=== PATIENT | female | born 1995 | race Caucasian/White ===

== ENCOUNTER 2017-02-02 22:48 | Emergency (ER) ==
[2017-02-02 23:12] VITALS: BP 118/78; TEMP 99.8; BMI 25.6
--- NOTE | 2017-02-02 23:18 | ED.PDOC ---
General ED Provider: Dr. ARIELA ZARAGOZA Chief Complaint: Non-specific Complaint Stated Complaint: Patient been having problem, swallowing, solids and liquids, been to [facility] they did not help me, told me it is a allergic reaction, I took benadry, no help,. Lauren called [facility] THEY SAW HER LAST IN NOVEMBER, Time Seen by Physician: 23:15 Mode of Arrival: Walk-In Information Source: Patient Nursing and Triage Documentation Reviewed and Agree: Yes EENT Complaint Exam - Throat Complaint/Exam Symptoms Are: Still present Timimg: Constant Initial Severity: Moderate Current Severity: Moderate Aggravating: Reports: Eating Alleviating: Reports: None Associated Signs and Symptoms: Reports: Dysphagia, Foreign body sensation. Denies: Fever, Drooling, Chills, Cough, Wheezing, Hoarseness, Sinus discomfort, Nasal congestion, Difficulty breathing, Lethargy, Irritability, Decreased activity, Vomiting, Diarrhea, Decreased hearing, Ear drainage Related History: Reports: Similar Episode Uvula Midline: Yes Anjana-tonsillar Fluctuence: No Scarlatinaform Rash Present: No Stridor Present: No Sinus Tenderness Present: No Tonsillar Hypertrophy Present: No Tonsillar Exudate Present: No Anjana-tonsillar Swelling Present: No Adenopathy Present: No Splenomegaly Present: No Differential Diagnoses: Pharyngitis, URI Review of Systems - Review Of Systems Constitutional: Reports: Malaise, Weakness Eyes: Reports: No symptoms Ears, Nose, Mouth, Throat: Reports: Throat pain Respiratory: Reports: No symptoms Cardiac: Reports: No symptoms GI: Reports: No symptoms : Reports: No symptoms Musculoskeletal: Reports: No symptoms Skin: Reports: No symptoms Neurological: Reports: No symptoms Endocrine: Reports: No symptoms Hematologic/Lymphatic: Reports: No symptoms All Other Systems: Reviewed and Negative Past Medical History - Past Medical History Previously Healthy: Yes Endocrine: Reports: None Cardiovascular: Reports: None Respiratory: Reports: None Hematological: Reports: None Gastrointestinal: Reports: None Genitourinary: Reports: None Neuro/Psych: Reports: Anxiety, Depression, PTSD Musculoskeletal: Reports: None Cancer: Reports: None Last Menstrual Period: 3 WEEKS AGO - Surgical History General Surgical History: Reports: None - Family History Family History: Reports: None - Social History Smoking Status: Current every day smoker, Heavy tobacco smoker Smoking Cessation Counseling Time: > 10 min Hx Substance Use: Yes Alcohol Screening: None - Immunizations Tetanus Shot up to Date: Yes Physical Exam - Physical Exam Appearance: Well-appearing, No pain distress, Well-nourished Eyes: TOAN, EOMI, Conjunctiva clear ENT: Ears normal, Nose normal, Oropharynx normal Respiratory: Airway patent, Breath sounds clear, Breath sounds equal, Respirations nonlabored Cardiovascular: RRR, Pulses normal, No rub, No murmur GI/: Soft, Nontender, No masses, Bowel sounds normal, No Organomegaly Musculoskeletal: Normal strength, ROM intact, No edema, No calf tenderness Skin: Warm, Dry, Normal color Neurological: Sensation intact, Motor intact, Reflexes intact, Cranial nerves intact, Alert, Oriented Psychiatric: Affect appropriate, Mood appropriate Interpretation - Radiology Interpretation Radiology Interpretation By: Radiologist Radiology Results: Negative Exam Interpreted: CT Scan Critical Care Note - Critical Care Note Total Time (mins): 0 Course - Course Hematology/Chemistry: 02/02/17 23:30 02/02/17 23:30 Orders, Labs, Meds: Orders Category Date Time Status CBC W/ AUTO DIFF Stat LAB 02/02/17 23:15 Ordered COMPREHENSIVE METABOLIC PANEL Stat LAB 02/02/17 23:15 Ordered STREP SCREEN Stat LAB 02/02/17 23:[address] SOFT TISSUE NECK W/O CONTR Stat RADS 02/02/17 23:15 Ordered Vital Signs: Temp Pulse Resp BP Pulse Ox 02/02/17 22:53 99.8 F H 93 H 18 118/78 98 Departure - Departure Time of Disposition: 00:43 Disposition: HOME SELF-CARE Discharge Problem: Pharyngitis Qualifiers: Pharyngitis/tonsillitis etiology: unspecified etiology Qualifier Code: (J02.9) Acute pharyngitis, unspecified Instructions: Pharyngitis (ED) Condition: Stable Pt referred to PMD for follow-up: Yes Additional Instructions: Increase hydration Tylenol prn Prescriptions: Amoxicillin/Potassium Clav [Augmentin 500-125 mg Tab] 1 tab PO Q12HR #20 tablet Prednisone 10 mg PO BIDWM #14 tablet Allergies/Adverse Reactions: Allergies No Known Drug Allergies Adverse Reaction (Verified 02/02/17 23:06) Home Medications: Ambulatory Orders Amoxicillin/Potassium Clav [Augmentin 500-125 mg Tab] 1 tab PO Q12HR #20 tablet 02/03/17 Prednisone 10 mg PO BIDWM #14 tablet 02/03/17 Disposition Discussed With: Patient, Family
[2017-02-02] MEDS ORDERED: DECADRON 4 MG/ML SDV IM STA (23:28)
[2017-02-02 23:33] LABS: BASOPHILS % (AUTO) 0.2 % (0.0-3.0); EOSINOPHILS % (AUTO) 0.1 % (0.0-7.0); HEMATOCRIT 42.4 % (37.0-47.0); HEMOGLOBIN 15.7 g/dl (12.0-16.0); IMMATURE GRANULOCYTE % (AUTO) 0.6 % (0.0-5.0); LYMPHOCYTES # (AUTO) 0.9 K/uL (0.60-3.4); LYMPHOCYTES % (AUTO) 5.6 (10.0-50.0); MEAN CORPUSCULAR HEMOGLOBIN 31.5 pg (27.0-31.0); MEAN CORPUSCULAR VOLUME 85.1 fl (81.0-99.0); MONOCYTES # (AUTO) 0.1 K/uL (0.4-2.0); MONOCYTES % (AUTO) 0.5 (0-10); NEUTROPHILS # (AUTO) 14.1 K/ul (2.0-6.9); PLATELET COUNT 348 10^3/uL (140-440); RED BLOOD COUNT 4.98 10^6/ul (4.20-5.40); WHITE BLOOD COUNT 15.12 K/ul (4.6-10.2)
[2017-02-02 23:41] LABS: SERUM PREGNANCY INTERNAL QC INTERNAL QC VALID
[2017-02-02 23:49] LABS: ALBUMIN 5.3 g/dL (3.4-5.0); ALBUMIN/GLOBULIN RATIO 1.61; ANION GAP 15.6; BILIRUBIN,TOTAL 1.15 mg/dL (0.00-1.20); BUN/CREATININE RATIO 12.17; CALCIUM 10.2 mg/dL (8.2-10.2); CREATININE 1.15 mg/dL (0.60-1.30); POTASSIUM 3.6 mmol/L (3.5-5.10); TOTAL PROTEIN 8.6 g/dL (6.4-8.2)
--- NOTE | 2017-02-03 00:33 | DI ---
EXAM: Chest two views HISTORY: Cough FINDINGS: Normal cardiac and mediastinal contours. Normal pulmonary vasculature. Lungs are clear. No significant abnormality of the bony thorax. IMPRESSION: Chest radiograph within normal limits.
--- NOTE | 2017-02-03 00:37 | CT ---
Exam: CT of the neck without contrast History: Dysphagia Technique: [address] of the neck without intravascular contrast FINDINGS: The pharynx and trachea appear normal. Normal cervical esophagus and prevertebral soft t issues. Normal thyroid, submandibular and parotid glands. Vascular structures appear normal by non contrast CT. The lung apices are clear. No inflammatory changes of the superficial or deep fat jennifer monet. No pathologic lymph node enlargement. No abnormalities of the skeleton. Impression: 1. No abnormalities of the neck by noncontrast CT.
[2017-02-03] MEDS ORDERED: AUGMENTIN 500-125 MG TAB PO STA (00:43)
== END 2017-02-03 00:58 | disposition home or self-care (01) ==
LOC: ED 22:48
DX: J02.9 Acute pharyngitis, unspecified (principal); F17.210 Nicotine dependence, cigarettes, uncomplicated
CPT/HCPCS: 36415; 80053; 84703; 85025; 87651; 87880; 96372; 99283